=== PATIENT | female | born 1970 | race African-American/Black ===

== ENCOUNTER 2022-05-27 16:57 | Emergency (ER) | payer BC, OTHER ==
[~2022-05-27] VITALS: Ht 157.5 cm; Wt 54.4 kg
[2022-05-27 17:23] VITALS: BP 126/82
--- NOTE | 2022-05-27 17:23 | NUR ---
COUGH AND SORETHROAT X 3 DAYS, AFEBRILE, VITALS ARE WITHIN NORMAL LIMITS. AWAITING MD BRYANT.
[2022-05-27] MEDS ORDERED: AZIT250T13 PO (18:15)
[2022-05-27] MEDS ORDERED: PRED50TA PO (18:15)
== END 2022-05-27 18:35 | disposition home or self-care (01) ==
LOC: ER 17:06
DX: J06.9 Acute upper respiratory infection, unspecified (principal); Z79.899 Other long term (current) drug therapy